=== PATIENT | female | born 1945 | race Caucasian/White ===

== ENCOUNTER 2020-06-16 12:43 | Emergency (ER) | payer MEDICARE ==
[2020-06-16 14:15] LABS: HEMOGLOBIN 11.6 gm/dl (12.3-15.3); RED BLOOD COUNT 3.84 M/UL (4.00-5.10); WHITE BLOOD COUNT 6.9 K/UL (4.5-11.0)
[2020-06-16 14:43] LABS: BUN/CREATININE RATIO 18 (0-10)
== END 2020-06-16 22:05 | disposition short-term general hospital (02) ==
LOC: ER1 12:43
PROVIDERS: Physician Assistant
DX: L97.329 Non-pressure chronic ulcer of left ankle with unspecified severity (principal); L03.115 Cellulitis of right lower limb; L03.116 Cellulitis of left lower limb; E11.9 Type 2 diabetes mellitus without complications; E78.5 Hyperlipidemia, unspecified; I11.9 Hypertensive heart disease without heart failure; J44.9 Chronic obstructive pulmonary disease, unspecified; I25.10 Atherosclerotic heart disease of native coronary artery without angina pectoris; F17.210 Nicotine dependence, cigarettes, uncomplicated; Z87.442 Personal history of urinary calculi; Z88.0 Allergy status to penicillin; Z96.653 Presence of artificial knee joint, bilateral
CPT/HCPCS: 71045; 75635; 80053; 81001; 82550; 82553; 82962; 83605; 83874; 84484; 85025; 85610; 85652; 85730; 86140; 87040; 93005; 93970; 96365; 96366; 96375; 99285; J0692; J1644; J3370; Q9967